=== PATIENT | female | born 1965 | race Caucasian/White ===

== ENCOUNTER 2017-07-30 01:00 | Emergency (ER) | payer OTHER ==
[2017-07-30 03:09] VITALS: PULSE 86; TEMP 97.9; BMI 32.9
[2017-07-30] MEDS ORDERED: CYCLOBENZAPRINE HCL 5 MG TABLET PO ONE (03:33)
[2017-07-30] MEDS ORDERED: IBUPROFEN 600 MG TABLET (FP) PO ONE ×2 (03:36→04:22)
--- NOTE | 2017-07-30 03:51 | PDOC ---
History of Present Illness - General History Source: Patient Exam Limitations: No Limitations - History of Present Illness Initial Comments: 07/30/17 03:40 Patient is a 51 year old female with no past medical history here with complaints off right neck pain radiating down to her arm 2 months. States she had an injury when she lift something heavy. States she has pain now in the neck and that radiates to the shoulder and arm 8/10, worse with laying on the right arm and extension of the arm. 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 Denies CP, nausea, vomiting. PMHX: as above PSocHX: neg cig, drug, etoh, all: NKDA GENERAL/CONSTITUTIONAL: [No fever or chills. No weakness. No weight change.] HEAD, EYES, EARS, NOSE AND THROAT: [No change in vision. No ear pain or discharge. No sore throat.] CARDIOVASCULAR: [No chest pain or shortness of breath.] RESPIRATORY: [No cough, wheezing, or hemoptysis.] GASTROINTESTINAL: [No nausea, vomiting, diarrhea or constipation. No rectal bleeding.] GENITOURINARY: [No dysuria, frequency, or change in urination.] MUSCULOSKELETAL: [No joint or muscle swelling or pain. No neck or back pain.] SKIN AND BREASTS: [No rash or easy bruising.] NEUROLOGIC: [No headache, vertigo, loss of consciousness, or loss of sensation.] PSYCHIATRIC: [No depression or anxiety.] ENDOCRINE: [No increased thirst. No abnormal weight change.] HEMATOLOGIC/LYMPHATIC: [No anemia, easy bleeding, or history of blood clots.] ALLERGIC/IMMUNOLOGIC: [No hives or skin allergy. No latex allergy.] GENERAL: [The patient is awake, alert, and fully oriented, in no acute distress. ] HEAD: [Normal with no signs of trauma.] EYES: [Pupils equal, round and reactive to light, extraocular movements intact, sclera anicteric, conjunctiva clear.] ENT: [Ears normal, nares patent, oropharynx clear without exudates. Moist mucous membranes.] NECK: [Normal range of motion, supple without lymphadenopathy, JVD, or masses.] LUNGS: [Breath sounds equal, clear to auscultation bilaterally. No wheezes, and no crackles.] HEART: [Regular rate and rhythm, normal S1 and S2 without murmur, rub.] ABDOMEN: [Soft, nontender, normoactive bowel sounds. No guarding, no rebound. No masses.] EXTREMITIES: [Normal range of motion of right shoudler and elbow, (+) tenderness right paraspinal cervical and shoulder muscles, and no edema. No clubbing or cyanosis. No cords, erythema, or tenderness.] NEUROLOGICAL: [Cranial nerves II through XII grossly intact. Normal speech, normal gait, sensory intact] PSYCH: [Normal mood, normal affect.] SKIN: [Warm, Dry, normal turgor, no rashes or lesions noted.] <Destini Murdock - Last Filed: 07/30/17 07:11> <Rach Cope - Last Filed: 08/01/17 09:47> - General Chief Complaint: Chest Pain Stated Complaint: PAIN Time Seen by Provider: 07/30/17 02:57 Past History - Suicide/Smoking/Psychosocial Hx Smoking History: Current some day smoker Have you smoked in the past 12 months: Yes Information on smoking cessation initiated: No Hx Alcohol Use: No Drug/Substance Use Hx: No <Destini Murdock - Last Filed: 07/30/17 07:11> <Rach Cope - Last Filed: 08/01/17 09:47> - Past Medical History Allergies/Adverse Reactions: Allergies Allergy/AdvReac Type Severity Reaction Status Date / Time No Known Allergies Allergy Verified 07/30/17 03:09 Home Medications: Ambulatory Orders Amlodipine Besylate [Norvasc -] 10 mg PO DAILY #30 tablet 07/30/17 Cyclobenzaprine HCl [Flexeril 10 mg] 10 mg PO BID PRN #60 tablet 07/30/17 Naproxen 500 mg PO BID #60 tablet. 07/30/17 *Physical Exam - Vital Signs Last Vital Signs Temp Pulse Resp BP Pulse Ox 97.9 F 86 19 224/96 98 07/30/17 03:06 07/30/17 03:06 07/30/17 03:06 07/30/17 03:06 07/30/17 03:06 <Destini Murdock - Last Filed: 07/30/17 07:11> - Vital Signs Last Vital Signs Temp Pulse Resp BP Pulse Ox 97.9 F 86 19 162/73 98 07/30/17 03:06 07/30/17 03:06 07/30/17 03:06 07/30/17 06:57 07/30/17 03:06 <Rach Cope - Last Filed: 08/01/17 09:47> ED Treatment Course - LABORATORY CBC & Chemistry Diagram: 07/30/17 05:13 07/30/17 05:13 - RADIOLOGY Radiology Studies Ordered: Category Date Time Status SPINE-CERVICAL [RAD] Stat Radiology 07/30/17 03:36 Ordered <Destini Murdock - Last Filed: 07/30/17 07:11> - LABORATORY CBC & Chemistry Diagram: 07/30/17 05:13 07/30/17 05:13 - ADDITIONAL ORDERS Additional order review: 07/30/17 05:13 RBC 5.45 H MCV 73.3 L MCHC 32.1 RDW 17.5 H MPV 9.0 Neutrophils % 57.0 Lymphocytes % 31.8 Monocytes % 8.0 Eosinophils % 2.5 Basophils % 0.7 - Medications Given in the ED: ED Medications Discontinued Medications Generic Name Dose Route Start Last Admin Trade Name Freq PRN Reason Stop Dose Admin Amlodipine Besylate 10 mg 07/30/17 04:34 07/30/17 04:57 Norvasc - PO 07/30/17 04:35 10 mg ONCE ONE Administration Cyclobenzaprine HCl 10 mg 07/30/17 03:33 07/30/17 04:24 Cyclobenzaprine Hcl PO 07/30/17 03:34 10 mg ONCE ONE Administration Ibuprofen 600 mg 07/30/17 03:36 07/30/17 04:24 Motrin - PO 07/30/17 03:37 600 mg ONCE ONE Administration Labetalol HCl 10 mg 07/30/17 06:58 07/30/17 07:02 Normodyne Injection - IVPUSH 07/30/17 06:59 10 mg ONCE ONE Administration Lidocaine 1 patch 07/30/17 03:54 07/30/17 04:25 Lidoderm Patch - TP 07/30/17 03:55 1 patch ONCE ONE Administration <Rach Cope - Last Filed: 08/01/17 09:47> Medical Decision Making - Medical Decision Making 07/30/17 03:52 Patient is a 51 year old female with no past medical history here with complaints off right neck pain radiating down to her arm 2 months. Mostly likely muscle pain/strain will. xry cervical spine motrin, flexril, lidoderm patch reassess repeat b/p 07/30/17 03:57 EKG SR rate 77, NAD, T wave inversion aVL 07/30/17 06:59 b/p still elevated with norvasc will given labetalol 10mg IV repeat b/p 162/73 cervical spine no acute finding Patient is stable condition no acute complaints Paitent will be discharge given clinic to follow up with, <Destini Murdock - Last Filed: 07/30/17 07:11> *DC/Admit/Observation/Transfer <Destini Murdock - Last Filed: 07/30/17 07:11> - Attestations Physician Attestion: I reviewed the case with the mid-level practitioner and agree with the mid- level practitioner's assessment, diagnosis and disposition. <Rach Cope - Last Filed: 08/01/17 09:47> Diagnosis at time of Disposition: Hypertension Qualifiers: Hypertension type: unspecified Qualified Code(s): I10 - Essential (primary) hypertension - Discharge Dispostion Disposition: HOME Condition at time of disposition: Stable - Prescriptions Prescriptions: Amlodipine Besylate [Norvasc -] 10 mg PO DAILY #30 tablet Cyclobenzaprine HCl [Flexeril 10 mg] 10 mg PO BID PRN #60 tablet PRN Reason: Back Pain Naproxen 500 mg PO BID #60 tablet.dr - Referrals Referrals: Emerson Awad MD [Staff Physician] - - Patient Instructions Printed Discharge Instructions: High Blood Pressure Additional Instructions: Your must follow up with the clinic for further management of your blood pressure. For ROTH, chest pain, nausea, vomiting you must return to the ED immediately. - Post Discharge Activity Forms/Work/School Notes: Back to Work
[2017-07-30] MEDS ORDERED: LIDOCAINE 5% TOPICAL PATCH TP ONE (03:54)
[2017-07-30] MEDS ORDERED: CYCLOBENZAPRINE HCL 10 MG TABLET (FP) ONE (04:21)
[2017-07-30] MEDS ORDERED: LIDOCAINE 5% TOPICAL PATCH ONE (04:22)
[2017-07-30] MEDS ORDERED: amLODIPine BESYLATE 10 MG TABLET (FP) PO ONE (04:34)
[2017-07-30] MEDS ORDERED: amLODIPine BESYLATE 5 MG TABLET (FP) ONE (04:54)
[2017-07-30 05:26] LABS: BASO % 0.7 % (0-2.0); EOS % 2.5 % (0-4.5); HEMOGLOBIN 12.8 GM/dL (10.7-15.3); LYMPH % 31.8 % (8-40); MCH 23.5 pg (25.7-33.7); MCHC 32.1 g/dl (32.0-36.0); MEAN CELL VOLUME 73.3 fl (80-96); PLATELET COUNT 228 K/MM3 (134-434); RBC 5.45 M/mm3 (3.60-5.2); RDW 17.5 % (11.6-15.6); WHITE BLOOD COUNT 8.7 K/mm3 (4.0-10.0)
[2017-07-30 05:55] LABS: ANION GAP 11 (8-16); BLOOD UREA NITROGEN 8 mg/dL (7-18); CALCIUM 9.4 mg/dL (8.5-10.1); CHLORIDE 102 mmol/L (98-107); CO2 28 mmol/L (21-32); CREATININE 0.6 mg/dL (0.55-1.02); GLUCOSE,RANDOM 106 mg/dL (74-106); POTASSIUM 3.5 mmol/L (3.5-5.1); SODIUM 141 mmol/L (136-145)
[2017-07-30 06:58] VITALS: BP 162/73
[2017-07-30] MEDS ORDERED: LABETALOL HCL 5 MG/1 ML (100MG/20 ML VIAL) IVPUSH ONE (06:58)
--- NOTE | 2017-07-30 17:01 | EKG ---
Test Reason : Blood Pressure : / mmHG Vent. Rate : 075 BPM Atrial Rate : 075 BPM P-R Int : 164 ms QRS Dur : 092 ms QT Int : 426 ms P-R-T Axes : 040 022 067 degrees QTc Int : 475 ms NORMAL SINUS RHYTHM NORMAL ECG NO PREVIOUS ECGS AVAILABLE Confirmed by CHRISTEN LANDRY MD ([id number]) on 07/30/2017 5:01:01 PM Referred By: Confirmed By:CHRISTEN LANDRY MD
[2017-07-30] MEDS ORDERED: LIDOCAINE PATCH REMOVAL MC SCH (22:00)
== END 2017-07-30 07:14 | disposition home or self-care (01) ==
LOC: JER 01:00
PROC: 3E033GC Introduction of Other Therapeutic Substance into Peripheral Vein, Percutaneous Approach (ICD-10-PCS; principal; 2017-07-30)
DX: I10 Essential (primary) hypertension (principal)
CPT/HCPCS: 36415; 72050-TC-FY; 80048; 82550; 84484; 85025; 93005; 93010; 96374; 99282-25

== ENCOUNTER 2017-09-24 22:03 | Emergency (ER) | payer OTHER ==
[2017-09-24 22:13] VITALS: BP 190/100; PULSE 95; TEMP 98.4; BMI 32.9
[2017-09-24] MEDS ORDERED: CLINDAMYCIN 900 MG PREMIX IVPB 900 MG/50 ML BAG IVPB ONE ×2 (22:25→22:30)
--- NOTE | 2017-09-24 22:25 | PDOC ---
History of Present Illness - General History Source: Patient Exam Limitations: No Limitations - History of Present Illness Initial Comments: 09/24/17 22:26 Best Contact: Pmhx: N/A Pshx: C section x2 Allergies: NKDA 52-year-old female presents to the emergency department complaining of a left gluteal abscess 2 days without fever, chills, nausea/vomiting, chest pain, shortness of breath, abdominal pains, flank pains, pain upon bowel movement. Patient states she noticed swelling with redness and purulent discharge earlier this afternoon. <Nikki Marks - Last Filed: 09/24/17 22:36> <Eusebio Huston - Last Filed: 09/27/17 17:16> - General Chief Complaint: Wound Stated Complaint: ABSCESS Time Seen by Provider: 09/24/17 22:20 Past History - Past Medical History COPD: No HTN: Yes - Suicide/Smoking/Psychosocial Hx Smoking History: Never smoked Have you smoked in the past 12 months: Yes Hx Alcohol Use: No Drug/Substance Use Hx: No <Nikki Marks - Last Filed: 09/24/17 22:36> <Eusebio Huston - Last Filed: 09/27/17 17:16> - Past Medical History Allergies/Adverse Reactions: Allergies Allergy/AdvReac Type Severity Reaction Status Date / Time No Known Allergies Allergy Verified 09/26/17 15:53 Home Medications: Ambulatory Orders Amlodipine Besylate [Norvasc -] 10 mg PO DAILY #30 tablet 07/30/17 Clindamycin HCl 300 mg PO TID #30 capsule 09/24/17 Chlorhexidine Gluconate [Hibiclens For Decolonization -] 1 applic TP DAILY #1 bottle 09/26/17 Review of Systems - Review of Systems Able to Perform ROS?: Yes Comments:: 09/24/17 22:28 CONSTITUTIONAL: Absent: fever, chills, diaphoresis, generalized weakness, malaise, loss of appetite HEENT: Absent: rhinorrhea, nasal congestion, throat pain, throat swelling, difficulty swallowing, mouth swelling, ear pain, eye pain, visual Changes CARDIOVASCULAR: Absent: chest pain, loss of consciousness, palpitations, irregular heart rate, peripheral edema RESPIRATORY: Absent: cough, shortness of breath, dyspnea with exertion, orthopnea, wheezing, stridor, hemoptysis GASTROINTESTINAL: Absent: abdominal pain, abdominal distension, nausea, vomiting, diarrhea, constipation, melena, hematochezia GENITOURINARY: Absent: dysuria, frequency, urgency, hesitancy, hematuria, flank pain, genital pain Left medial buttocks: +purulent drainage/pain/redness MUSCULOSKELETAL: Absent: myalgia, arthralgia, joint swelling SKIN: Absent: rash, itching, pallor Is the patient limited Scottish proficient: No <Nikki Marks - Last Filed: 09/24/17 22:36> *Physical Exam - Vital Signs Last Vital Signs Temp Pulse Resp BP Pulse Ox 98.4 F 95 H 18 190/100 97 09/24/17 22:05 09/24/17 22:05 09/24/17 22:05 09/24/17 22:05 09/24/17 22:05 - Physical Exam Comments: 09/24/17 22:29 GENERAL: Well developed, well nourished. Awake and alert. No acute distress. HEENT: Normocephalic, atraumatic. PERRLA, EOMI. No conjunctival pallor. Sclera are non- icteric. Moist mucous membranes. Oropharynx is clear. NECK: Supple. Full ROM. No JVD. Carotid pulses 2+ and symmetric, without bruits. No thyromegaly. No lymphadenopathy. CARDIOVASCULAR: Regular rate and rhythm. No murmurs, rubs, or gallops. Distal pulses are 2+ and symmetric. PULMONARY: No evidence of respiratory distress. Lungs clear to auscultation bilaterally. No wheezing, rales or rhonchi. ABDOMINAL: Soft. Non-tender. Non-distended. No rebound or guarding. No organomegaly. Normoactive bowel sounds. MUSCULOSKELETAL Normal range of motion at all joints. No bony deformities or tenderness. No CVA tenderness. EXTREMITIES: No cyanosis. No clubbing. No edema. No calf tenderness. SKIN: Warm and dry. Normal capillary refill. No rashes. No jaundice. Left medial buttocks: +3cm x4cm purulent drainage, erythema, +pain on palp Neg lymphangitis Procedures: Left medial buttocks Betadine prep 1% lidocaine=4cc #11 blade Incision +purulent drainage +Wound culture obtained ABD drainage <Nikki Marks - Last Filed: 09/24/17 22:36> - Vital Signs Last Vital Signs Temp Pulse Resp BP Pulse Ox 98.4 F 95 H 18 190/100 97 09/24/17 22:05 09/24/17 22:05 09/24/17 22:05 09/24/17 22:05 09/24/17 22:05 <Eusebio Huston - Last Filed: 09/27/17 17:16> ED Treatment Course - ADDITIONAL ORDERS Additional order review: 09/24/17 22:51 Gram Stain - Final Abscess Wound Culture - Final Mr S Aureus - Medications Given in the ED: ED Medications Discontinued Medications Generic Name Dose Route Start Last Admin Trade Name Jelly PRN Reason Stop Dose Admin Clindamycin Phosphate 900 mg in 50 mls @ 100 mls/hr 09/24/17 22:25 09/24/17 22:32 Cleocin 900 Mg Premix Ivpb - IVPB 09/24/17 22:54 100 mls/hr ONCE ONE Administration Protocol <Eusebio Huston - Last Filed: 09/27/17 17:16> Medical Decision Making - Medical Decision Making The patient was seen and evaluated in conjunction with GEOVANY Marks under my direct supervision, ancillary studies were reviewed. I agree with the plan as outlined by GEOVANY Marks. <Eusebio Huston - Last Filed: 09/27/17 17:16> *DC/Admit/Observation/Transfer - Discharge Dispostion Admit: No <Nikki Marks - Last Filed: 09/24/17 22:36> <Eusebio Huston - Last Filed: 09/27/17 17:16> Diagnosis at time of Disposition: Cellulitis and abscess of buttock - Discharge Dispostion Disposition: HOME Condition at time of disposition: Stable - Prescriptions Prescriptions: Clindamycin HCl 300 mg PO TID #30 capsule - Patient Instructions Printed Discharge Instructions: DI for Cellulitis -- Adult, DI for Skin Abscess Additional Instructions: Warm compress for the next 2 days Clindamycin as prescribed Be sure to follow-up with your physician and the infectious disease doctor on your discharge form Return back to the ER in 48 hours for wound check Return back to the ER for severe/persistent or worsening symptoms
[2017-09-24] MEDS ORDERED: LIDOCAINE HCL 2% (20ML MULTI-DOSE VIAL) NR ONE (22:44)
--- NOTE | 2017-09-26 11:47 | PDOC ---
Patient Follow-up (Call Back) - Post ED Follow - Up Condition at time of discharge: Stable Disposition at time of original discharge: HOME Reason for Call Back: Abnwl. Microbiology (Received call from by [facility] stating that the abscess culture is positive for presumptive MRSA. Patient discharged on clindamycin. No further intervention is needed at this time.) - Disposition Rx Needed: No
== END 2017-09-24 23:32 | disposition home or self-care (01) ==
LOC: JER 22:03
PROC: 0J990ZZ Drainage of Buttock Subcutaneous Tissue and Fascia, Open Approach (ICD-10-PCS; principal; 2017-09-24)
PROC: 3E03329 Introduction of Other Anti-infective into Peripheral Vein, Percutaneous Approach (ICD-10-PCS; 2017-09-24)
DX: L02.31 Cutaneous abscess of buttock (principal)
CPT/HCPCS: 10060; 87070; 87186; 87205; 96365; 99282-25

== ENCOUNTER 2017-09-26 15:52 | Emergency (ER) | payer OTHER ==
--- NOTE | 2017-09-26 15:53 | PDOC ---
Rapid Medical Evaluation Medical Evaluation: Allergies Allergy/AdvReac Type Severity Reaction Status Date / Time No Known Allergies Allergy Verified 09/24/17 22:06 09/26/17 15:53 I have performed a brief in-person evaluation of this patient. The patient presents with a chief complaint of: gluteal abscess check/packing removal Pertinent physical exam findings: NA I have ordered the following: nothing The patient will proceed to the ED for further evaluation. Discharge Disposition - Diagnosis Abscess re-check - Referrals - Patient Instructions - Post Discharge Activity
[2017-09-26 15:57] VITALS: BP 158/93; PULSE 101; TEMP 98.2; BMI 33.3
--- NOTE | 2017-09-26 16:38 | PDOC ---
Suture Removal/Wound Check HPI - History of Present Illness Chief Complaint: Wound Stated Complaint: PACKAGE REMOVAL Time Seen by Provider: 09/26/17 16:04 History Source: Yes: Patient Exam Limitations: Yes: No Limitations Treated at: [facility] ED - Previous ED Treatment Type of procedure performed on last visit: Yes: I&D of Abscess Tetanus Immunization: Yes: Up to Date Antibiotics Prescribed: Yes (Clindamycin) Past History - Travel Traveled outside of the country in the last 30 days: No Close contact w/someone who was outside of country & ill: No - Past Medical History Allergies/Adverse Reactions: Allergies Allergy/AdvReac Type Severity Reaction Status Date / Time No Known Allergies Allergy Verified 09/26/17 15:53 Home Medications: Ambulatory Orders Amlodipine Besylate [Norvasc -] 10 mg PO DAILY #30 tablet 07/30/17 Clindamycin HCl 300 mg PO TID #30 capsule 09/24/17 Chlorhexidine Gluconate [Hibiclens For Decolonization -] 1 applic TP DAILY #1 bottle 09/26/17 COPD: No HTN: Yes - Immunization History Immunization Up to Date: Yes - Suicide/Smoking/Psychosocial Hx Smoking History: Never smoked Have you smoked in the past 12 months: Yes Information on smoking cessation initiated: No Hx Alcohol Use: No Drug/Substance Use Hx: No Suture Removal/Wound Check PE - Physical Exam Laceration/Wound Check Symptoms: reports: Redness. denies: Pain, Fever, Chills Comments: 09/26/17 17:50 Erythema localized to wound with mild induration, patient denies pain to area. 4 inches of packing removed without difficulty patient to continue antibiotics proper care instructions given to patient. Current Severity Level: None Maximum Severity Level: None Pain Localization: None *Review of Systems - Review of Systems Constitutional: No: Symptoms Reported Musculoskeletal: No: Symptoms Reported Integumentary: Yes: Erythema. No: Bruising, Rash Hematologic/Lymphatic: No: Symptoms Reported All Other Systems: Reviewed and Negative Medical Decision Making - Medical Decision Making 09/26/17 17:51 A/P: Patient here for packing removal to left buttocks, patient denies pain to area there is a 2 cm opening with no purulent drainage, packing removal without difficulty, 4 inches of packing removed. Sterile dressing applied, patient to continue antibiotics change dressing daily keep area clean and dry. I have discharged patient on Hibiclens to cleanse her body for decolonization follow- up with infectious disease. Patient is MRSA presumptive positive *DC/Admit/Observation/Transfer Diagnosis at time of Disposition: Abscess re-check - Discharge Dispostion Disposition: HOME Condition at time of disposition: Stable - Prescriptions Prescriptions: Chlorhexidine Gluconate [Hibiclens For Decolonization -] 1 applic TP DAILY #1 bottle - Referrals Referrals: Hebert Armstrong MD [Staff Physician] - - Patient Instructions Additional Instructions: Please keep area clean and dry. No lotion soaps or detergents. Recommended cleaning with the soap that I give you on a daily basis. up with infectious disease doctor. please no fragrant lotion soaps or detergents. Por favor, mantenga el shon limpia y seca. Sin lociones jabones o detergentes. Limpieza recomendada con el jabn que te doy a diario. arriba con el doctor de enfermedades infecciosas. por favor no use jabones o detergentes con lociones fragantes. - Post Discharge Activity Forms/Work/School Notes: Back to Work
== END 2017-09-26 16:50 | disposition home or self-care (01) ==
LOC: JERFT 15:52
DX: Z48.01 Encounter for change or removal of surgical wound dressing (principal)
CPT/HCPCS: 99281-25

== ENCOUNTER 2018-09-20 13:51 | Emergency (ER) | payer OTHER ==
[2018-09-20 13:57] VITALS: TEMP 97.8; BMI 35.6
--- NOTE | 2018-09-20 13:58 | PDOC ---
Rapid Medical Evaluation Chief Complaint: Headache Time Seen by Provider: 09/20/18 13:54 Medical Evaluation: Allergies Allergy/AdvReac Type Severity Reaction Status Date / Time No Known Allergies Allergy Verified 09/26/17 15:53 09/20/18 13:54 I performed a brief in-person evaluation of this patient. Chief complaint: Headache since 9am, intermittent headaches for 3 days. Ran out of labetolol for HTN one week ago. Pertinent physical exam findings: NIHSS=0. Ambulatory with steady gait. BP 163/ 98. I have ordered the following: Labetolol 200mg PO. Patient will proceed to the ED for further evaluation. Discharge Disposition - Diagnosis Headache, HTN (hypertension) - Referrals - Patient Instructions - Post Discharge Activity
[2018-09-20] MEDS ORDERED: LABETALOL HCL 200 MG TABLET (FP) PO ONE (14:53)
[2018-09-20] MEDS ORDERED: LABETALOL HCL 100 MG TABLET (FP) ONE (14:56)
--- NOTE | 2018-09-20 15:59 | PDOC ---
History of Present Illness - General Chief Complaint: Headache Stated Complaint: HEADACHE Time Seen by Provider: 09/20/18 13:54 History Source: Patient Exam Limitations: No Limitations - History of Present Illness Initial Comments: 09/20/18 17:01 53 yo F w/ a h/o HTN comes in c/o 10 days of intermittent pounding bitemporal headache which started as a mild headache, progreesively got worse, went away and started again today. It is now a 3/10 and is not associated with any other symptoms. Pt says that she got started on labetalol 4 months ago 200mg BID, which has been working for her blood pressure which was uncontrolled on other meds. She was supposed to make an appointment with her PMD for a refill but she never did, got busy, but she plans on making an appointment for this upcoming week. Denies fever/chills, no NVD, no neck pain/stiffness, no vision changes, no dizziness, no change in speech, no change in sensation, no numbness/tingling anywhere, no weakness, no chest pain, no palpitations, no SOB, no diaphoresis, no back pain, no abdominal pain Past History - Past Medical History Allergies/Adverse Reactions: Allergies Allergy/AdvReac Type Severity Reaction Status Date / Time No Known Allergies Allergy Verified 09/26/17 15:53 Home Medications: Ambulatory Orders Amlodipine Besylate [Norvasc -] 10 mg PO DAILY #30 tablet 07/30/17 Clindamycin HCl 300 mg PO TID #30 capsule 09/24/17 Chlorhexidine Gluconate [Hibiclens For Decolonization -] 1 applic TP DAILY #1 bottle 09/26/17 Labetalol HCl [Normodyne -] 200 mg PO BID #14 tablet 09/20/18 COPD: No HTN: Yes - Immunization History Immunization Up to Date: Yes - Suicide/Smoking/Psychosocial Hx Smoking History: Never smoked Have you smoked in the past 12 months: No Information on smoking cessation initiated: No Hx Alcohol Use: No Drug/Substance Use Hx: No Review of Systems - Review of Systems Able to Perform ROS?: Yes Constitutional: No: Chills, Fever, Malaise, Night Sweats HEENTM: No: Eye Pain, Recent change in vision, Throat Pain Respiratory: No: Cough, Shortness of Breath Cardiac (ROS): No: Chest Pain, Palpitations, Chest Tightness ABD/GI: No: Diarrhea, Nausea, Vomiting, Abdominal cramping : No: Dysuria, Hematuria Musculoskeletal: No: Back Pain Integumentary: No: Rash Neurological: Yes: Headache. No: Numbness, Seizure, Dizziness Psychiatric: No: Change in Appetite Endocrine: No: Unexplained Weight Loss *Physical Exam - Vital Signs Last Vital Signs Temp Pulse Resp BP Pulse Ox 97.8 F 100 H 20 163/98 99 09/20/18 13:54 09/20/18 13:54 09/20/18 13:54 09/20/18 13:54 09/20/18 13:54 - Physical Exam General Appearance: Yes: Nourished. No: Apparent Distress HEENT: positive: GE[place]IE, Normal ENT Inspection, Normal Voice. negative: Pale Conjunctivae, Scleral Icterus (R), Scleral Icterus (L) Neck: positive: Supple. negative: Decreased range of motion, Tender midline Respiratory/Chest: positive: Lungs Clear, Normal Breath Sounds. negative: Respiratory Distress, Accessory Muscle Use Cardiovascular: positive: Regular Rhythm, Regular Rate Comments:: 09/20/18 17:23 Neuro exam : A+Ox3 (person, place, time), normal sensorium. Visual lyons: full to confrontation. Pupils: equal, round, and reactive to light. EOM: intact and smooth pursuit. No nystagmus. Sensation: V1, V2, and V3 normal b/l Facial strength: muscles of mastication, facial expression, shoulder shrug, and head turn normal. Hearing: grossly intact b/l Mouth: tongue protrudes midline and moves Left/Right equal b/l. Uvula rises symmetrically. Motor: UE and LE 5/5 diffusely. Sensation: light touch and pinprick WNL. Cerebellum: [id number] normal without dysmetria or intention tremor. No dysdiadodyskinesia. Gait: unassisted, steady, Romberg negative, and heel-walk normal. No atalgia, difficulty in ambulation or ataxia. Gastrointestinal/Abdominal: positive: Normal Bowel Sounds, Soft. negative: Tender Musculoskeletal: positive: Normal Inspection. negative: CVA Tenderness, Decreased Range of Motion Extremity: positive: Normal Capillary Refill, Normal Inspection, Normal Range of Motion. negative: Tender, Pedal Edema Integumentary: positive: Normal Color, Dry. negative: Jaundice, Rash ED Treatment Course - Medications Given in the ED: ED Medications Discontinued Medications Generic Name Dose Route Start Last Admin Trade Name Jelly PRN Reason Stop Dose Admin Labetalol HCl 200 mg 09/20/18 14:53 09/20/18 14:59 Normodyne - PO 09/20/18 14:54 200 mg ONCE ONE Administration Medical Decision Making - Medical Decision Making 09/20/18 14:30 Pt w/ 08/11 headache, high BP, stopped meds. ROTH likely from HTN. WIll give a dose of labetolol here and reassess. Pt has her bottle with her which confirms a dose of 200mg BID 09/20/18 15:55 Pt feels a lot better. ROTH resolved. WIll discharge with a week's worth of labetolol, she will make an appointment with her PMD this week Return for worsening/concerning symtpoms Pt verbalizes understanding and agrees with plan Case discussed with attending who agrees with assessment and plan 09/20/18 17:17 *DC/Admit/Observation/Transfer Diagnosis at time of Disposition: Headache Qualifiers: Headache type: unspecified Headache chronicity pattern: episodic headache Intractability: intractable Qualified Code(s): R51 - Headache HTN (hypertension) Qualifiers: Hypertension type: unspecified Qualified Code(s): I10 - Essential (primary) hypertension - Discharge Dispostion Disposition: HOME Condition at time of disposition: Stable - Prescriptions Prescriptions: Labetalol HCl [Normodyne -] 200 mg PO BID #14 tablet - Referrals - Patient Instructions Printed Discharge Instructions: The DASH Diet Additional Instructions: Please follow up with your regular doctor this week. Return for worsening/ concerning symptoms including vision changes, loss of sensation, speech changes , chest pain, nausea/vomiting, sweating, chest pain, worsening headache, dizziness, neck pain. - Post Discharge Activity
[2018-09-20 17:05] VITALS: BP 128/84; PULSE 88
== END 2018-09-20 16:30 | disposition home or self-care (01) ==
LOC: JER 13:51
DX: I10 Essential (primary) hypertension (principal); R51 Headache
CPT/HCPCS: 99281-25

== ENCOUNTER 2022-04-11 09:55 | Emergency (ER) | payer OTHER ==
[2022-04-11 10:05] VITALS: BP 163/82; PULSE 82; RESP 17; TEMP 97.9; BMI 33.5
[2022-04-11] MEDS ORDERED: ACETAMINOPHEN 325 MG TABLET (FP) PO ONE (11:24)
[2022-04-11] MEDS ORDERED: IBUPROFEN 400 MG TABLET (FP) PO ONE ×2 (11:25→12:11)
[2022-04-11] MEDS ORDERED: LIDOCAINE 5% TOPICAL PATCH TP ONE (11:25)
[2022-04-11] MEDS ORDERED: LIDOCAINE 5% TOPICAL PATCH ONE (12:11)
[2022-04-11] MEDS ORDERED: ACETAMINOPHEN 325 MG TABLET (FP) ONE (12:11)
[2022-04-11] MEDS ORDERED: LIDOCAINE PATCH REMOVAL MC SCH (22:00)
== END 2022-04-11 13:00 | disposition home or self-care (01) ==
LOC: JERFT 09:55
DX: M25.562 Pain in left knee (principal)
CPT/HCPCS: 73562-TC-LT-FY; 99283-25